=== PATIENT | female | born 1940 | race Two or more races ===

== ENCOUNTER 2018-04-16 10:31 | Outpatient (CLI) | payer OTHER | END 2018-04-16 10:34 | disposition home or self-care (01) | LOC: SONOGRAMA 10:31 | DX: E04.2 Nontoxic multinodular goiter (principal) ==

== ENCOUNTER → 2022-11-21 | Outpatient (CLI) | payer OTHER | END | disposition home or self-care (01) | LOC: RX STUDY 09:13 | PROVIDERS: ATTEND Otolaryngology Otolaryngology/Facial Plastic Surgery | DX: R13.10 Dysphagia, unspecified (principal); R59.0 Localized enlarged lymph nodes ==

== ENCOUNTER 2022-12-21 09:26 | Outpatient (CLI) | payer OTHER | END 2022-12-21 09:29 | disposition home or self-care (01) | LOC: SONOGRAMA 09:26 | PROVIDERS: ATTEND Pathology Anatomic Pathology | DX: D34 Benign neoplasm of thyroid gland (principal); E04.9 Nontoxic goiter, unspecified ==